=== PATIENT | female | born 1980 | race Caucasian/White ===

== ENCOUNTER 2020-10-02 13:44 | Outpatient (CLI) | payer OTHER, SELFPAY ==
--- NOTE | ~2020-10-02 | XR_ITS ---
EXAMINATION: XR abdomen/kub 1V DATE: 10/02/2020 14:13 INDICATION: Hematuria. TECHNIQUE: A supine view of the abdomen on 2 radiographs was obtained. COMPARISON: None. FINDINGS: There are no dilated loops of bowel. There is a large volume stool in the colon. Right kidn ey is obscured by the colon. There are multiple 1-2 mm densities overlying left kidney that may be st ones. There are multiple calcifications in the pelvis. IMPRESSION: 1. Small left kidney stones. 2. Calcifications in the pelvis, at least most of which are likely phleboliths. Distal ureteral stone cannot be excluded. Reviewed, dictated and finalized at location B.
[2020-10-02 15:07] LABS: Anion Gap 6 mmol/L (8-16); Blood Urea Nitrogen 6 mg/dL (7-17); Calcium 8.6 mg/dL (8.4-10.2); Carbon Dioxide 31 mmol/L (22-30); Chloride 102 mmol/L (98-107); Estimated Glomerular Filt Rate > 60; Glucose 75 mg/dL (65-105); Potassium 3.7 mmol/L (3.4-5.0); Sodium 139 mmol/L (137-145)
[2020-10-02 15:11] LABS: Hematocrit 37.6 % (37.0-47.0); Hemoglobin 12.2 g/dL (12.0-15.0); Mean Corpuscular HGB Conc 32.4 g/dl (32-36); Mean Corpuscular Hemoglobin 29.4 pg (26-34); Mean Corpuscular Volume 90.6 fl (80-100); Mean Platelet Volume 10.6 fl (7.4-10.4); Platelet Count Result 286 k/mm3 (150-375); Red Blood Count 4.15 M/mm3 (4.2-5.4); Red Cell Distribution Width 14.9 % (11.5-14.5); White Blood Count 5.9 K/mm3 (4.5-10.0)
[2020-10-02 15:31] LABS: Free T4 Free Thyroxine 0.93 ng/mL (0.78-2.19); Vitamin D 25 Hydroxy 32.5 ng/mL
== END 2020-10-02 13:45 | disposition home or self-care (01) ==
LOC: ANHIMG 13:49
PROVIDERS: PCP Family Medicine; Referring Provider Nurse Practitioner Family; Visit Provider Nurse Practitioner Family
DX: Z13.1 Encounter for screening for diabetes mellitus (principal); R53.83 Other fatigue; R31.9 Hematuria, unspecified; N20.0 Calculus of kidney
CPT/HCPCS: 36415; 74018; 80048; 82306; 84439; 84443; 85027

== ENCOUNTER 2020-12-17 08:19 | Outpatient (CLI) | payer OTHER, SELFPAY ==
--- NOTE | ~2020-12-17 | XR_ITS ---
EXAMINATION: XR abdomen/kub 1V INDICATION: Hematuria TECHNIQUE: Supine views of the abdomen were obtained on 2 radiographs. COMPARISON: 10/02/2020; CT from today FINDINGS: There are multiple phleboliths of the pelvis. A new 7 mm calcification is seen in the right pelvis at the expected location of the ureterovesicular junction, consistent with the stone identifi ed on CT. There are punctate stones of the kidneys. The bowel gas pattern is normal. IMPRESSION: 1. 7 mm right pelvic calcification in the expected location of the ureterovesicular junction. 2. Bilateral nephrolithiasis. Reviewed, dictated and finalized at location B. IMPRESSION: 1. 7 mm right pelvic calcification in the expected location of the ureterovesic ular junction. 2. Bilateral nephrolithiasis.
--- NOTE | ~2020-12-17 | CT_ITS ---
EXAMINATION: CT abdomen pelvis wo con DATE: 12/17/2020 08:36 INDICATION: Right flank pain and hematuria TECHNIQUE: Computed tomography (CT) of the abdomen and pelvis was performed without intravenous contr ast. The dose-length product (DLP) was 212.51 mGy-cm. Automated exposure control and iterative recons truction technique were employed. COMPARISON: None FINDINGS: The lung bases are clear. The heart size is normal. The liver, pancreas, gallbladder, and a drenal glands are normal. Punctate calcifications in an otherwise normal spleen likely represent heal ed granulomatous disease. There is an 8 mm stone at the right ureterovesicular junction which causes moderate to severe right hydroureteronephrosis. Nonobstructing right kidney stones measure up to 2 mm . There appears to be medullary nephrocalcinosis of the kidneys. Nonobstructing left kidney stones me asure up to 4 mm. No pathologically enlarged abdominal or pelvic lymph nodes are identified. There is no free intraperitoneal gas or evidence of bowel obstruction. IMPRESSION: 1. 8 mm stone of the right ureterovesicular junction causing moderate to severe right hydroureteronep hrosis. 2. 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 Reviewed, dictated and finalized at location B. IMPRESSION: 1. 8 mm stone of the right ureterovesicular junction causing moderate to severe right hydroureteronephrosis. 2. Bilateral nonobstructing nephrolithiasis and likely medullary nephrocalcinos is of the kidneys.
== END 2020-12-17 08:20 | disposition home or self-care (01) ==
PROVIDERS: PCP Family Medicine; Visit Provider Nurse Practitioner Family
DX: M54.9 Dorsalgia, unspecified (principal); R10.9 Unspecified abdominal pain; R31.9 Hematuria, unspecified; N20.0 Calculus of kidney; N13.30 Unspecified hydronephrosis
CPT/HCPCS: 74018; 74176

== ENCOUNTER 2020-12-18 02:56 | Day surgery (SDC) | payer OTHER, SELFPAY ==
[2020-12-17 15:01] VITALS: BMI 22.1
--- NOTE | ~2020-12-18 | XR_ITS ---
EXAMINATION: XR retrograde pyelo w/stent RT DATE: 12/18/2020 13:01 INDICATION: Right ureteral stone. TECHNIQUE: 6 intraoperative fluoroscopic views of the abdomen and pelvis were obtained. I was not pre sent. Fluoroscopy exposure time was 66 seconds. COMPARISON: CT abdomen and pelvis 12/17/2020 FINDINGS: There is a stone at right ureterovesicular junction. The right retrograde pyelogram demonst rates severe hydronephrosis and hydroureter. The final images demonstrate a right internal ureteral s tent in expected position. IMPRESSION: 1. Stone at right ureterovesicular junction. 2. Severe right hydronephrosis and hydroureter. Right internal ureteral stent in expected position. Reviewed, dictated and finalized at location A. IMPRESSION: 1. Stone at right ureterovesicular junction. 2. Severe right hydronephrosis and hydroureter. Right internal ureteral stent i n expected position.
[2020-12-18] MEDS: LACTATED RINGERS 1,000 ML 30 ML IV CONT ×2 (10:50→13:27)
[2020-12-18 11:13] VITALS: BP 124/82; PULSE 95; TEMP 36.5; O2SAT 98
--- NOTE | 2020-12-18 11:29 | P.HP_ITS ---
H&P: HPI History of Present Illness Date/Time: 12/18/20 11:29 Chief Complaint: right ureteral calculus with hydro Narrative: 40 year old with 8mm distal right ureteral calculus. Presents for definitive treatment Review of Systems Review of Systems: All systems reviewed & are unremarkable except as noted in HPI and below [facility] Social History Social History Smoking status: Never smoker Alcohol intake: current Alcohol use details: TWO DRINKS PER MONTH Living arrangements: with family Spiritual care concerns: No Meds Home Medications and Allergies Home Medications Medication Instructions Recorded Confirmed Type meloxicam 15 mg PO PRN PRN 12/17/20 12/17/20 History nitrofurantoin monohyd/m-cryst 100 mg PO Q12H 12/17/20 12/18/20 History [Macrobid] tamsulosin [Flomax] 0.4 mg PO PRN PRN 12/17/20 12/18/20 History tramadol 50 mg tablet 50 mg PO Q6H PRN #30 tablet 12/17/20 12/18/20 Rx tretinoin 1 applic TOPICAL PRN PRN 12/17/20 12/17/20 History Allergies Allergy/AdvReac Type Severity Reaction Status Date / Time Sulfa (Sulfonamide AdvReac Rash Verified 12/18/20 10:22 Antibiotics) Vital Signs Vital Signs - 24 hr 12/18/20 11:13 Temperature 36.5 C Pulse Rate 95 Blood Pressure 124/82 Pulse Oximetry 98 Exam Const: General: cooperative and comfortable Eyes: General: appearance normal, both eyes and all related structures Resp: Effort & Inspection: normal respiratory effort Cardio: Rate: regular rate Rhythm: regular rhythm GI: GI Palp: Yes Soft to palpation Assessment and Plan Assessment and plan (1) Right ureteral calculus: Code(s): N20.1 - Calculus of ureter Status: Acute Assessment and Plan: cystoscopy, right reterograde, right ureteroscopy with stone extraction, laser, stent placment
--- NOTE | 2020-12-18 11:35 | WPDHPUPDATE1 ---
History and Physical Update Update Date/Time: 12/18/20 11:35 History and Physical has been reviewed, including an updated exam of the patient. There are NO changes in the patient's condition. Risks, benefits, and alternatives have been discussed and questions answered. Patient agrees to proceed with procedure.
--- NOTE | 2020-12-18 11:42 | WPDANESEPPF ---
Anes - Initial Pre Proc Eval Procedure: Operation Date: 12/18/20 12:00 Proposed Procedures p Cystoscopy, Right Ureteroscopy, Right Retrograde Pyelogram, Right Stone Extraction, - Frantz Marie MD s Holmium Laser Procedure, Right Stent Placement - Frantz Marie MD Date/Time: 12/18/20 11:42 Surgeon: Frantz Marie MD Pre Op Diagnosis: right ureteral stone Patient Data Age: 40 Gender: F Height: 1.6 m Weight: 57.9 kg Last Vital Signs Temp 36.5 C 12/18/20 11:13 Pulse 95 12/18/20 11:13 BP 124/82 12/18/20 11:13 Pulse Ox 98 12/18/20 11:13 Allergies Allergy/AdvReac Type Severity Reaction Status Date / Time Sulfa (Sulfonamide AdvReac Rash Verified 12/18/20 10:22 Antibiotics) Home Medications Medication Instructions Recorded Confirmed Type meloxicam 15 mg PO PRN PRN 12/17/20 12/17/20 History nitrofurantoin monohyd/m-cryst 100 mg PO Q12H 12/17/20 12/18/20 History [Macrobid] tamsulosin [Flomax] 0.4 mg PO PRN PRN 12/17/20 12/18/20 History tramadol 50 mg tablet 50 mg PO Q6H PRN #30 tablet 12/17/20 12/18/20 Rx tretinoin 1 applic TOPICAL PRN PRN 12/17/20 12/17/20 History Patient hx anesthesia problems: none Family hx anesthesia problems: post op nausea/vomiting PMFSH Social History Social History Smoking status: Never smoker Alcohol intake: current Alcohol use details: TWO DRINKS PER MONTH Living arrangements: with family Spiritual care concerns: No Anes - Eval Final PreProcedure Day of Procedure 12/18/20 11:42 Patient weight: normal Heart: regular rate and rhythm Lungs: clear to auscultation Airway: Mallampati scale class II Neurological: alert and oriented Last oral intake: >/= 8 hours ASA classification: I Emergent: no Anesthetic plan: proceed Anesthesia type and monitoring: general LMA and standard monitoring Informed Consent: The patient's anesthetic plan and its attendant risks and benefits were discussed with the patient/family/POA. Questions were solicited and answers provided to the satisfaction of the patient/family/POA.
[2020-12-18] MEDS: SCOPOLAMINE 1.5 MG PATCH TRANSDERM (11:53)
[2020-12-18] MEDS: ceFAZolin 2 GM/D5W 50 ML 2 GM/50 ML BAG IVPB (12:28)
[2020-12-18] MEDS: LIDOCAINE HCL 2% GEL UROJET 10 ML PKG MUCOUS MEM (12:49)
[2020-12-18] MEDS: KETOROLAC 30 MG/ML VIAL (*BKC) IV PUSH (12:56)
[2020-12-18 13:03] VITALS: BP 102/60; PULSE 72; RESP 16; TEMP 36.1; O2SAT 100
--- NOTE | 2020-12-18 13:03 | P.OP_ITS ---
Procedure Note - Detailed Date of Procedure 12/18/20 Pre-op Diagnosis right ureteral stone Post-op Diagnosis same Procedure Performed Cystoscopy, right retrograde pyelogram, right ureteroscopy with stone extraction, right ureteral stent placement 4.8 [place] contour Surgeon Frantz Marie MD Anesthesia general Description of Procedure patient is taken the operative suite and correctly identified. Once anesthesia was obtained she was placed in dorsal lithotomy position and prepped and draped usual sterile fashion. Twenty-two [place] scope inserted in the bladder. There is no tumors noted. The right ureteral orifice was cannulated with a guidewire. It was then dilated with an 8/10 dilator. Rigid ureteral scope was inserted. The stone was visualized grasped with escape basket and retrieved in its entirety. It sent for analysis. Reinspection revealed no residual stones. Pyelogram was performed. She has a very dilated ureter as well as collecting system. There is some question whether there is a mild UPJ. We were able to manipulate a guidewire up into the renal pelvis and then replaced that with a 4.8 [place] contour stent with the proximal end coiled in the renal pelvis and the distal in the bladder. Bladder was drained. 2% viscous lidocaine was inserted urethra patient is taken recovery room stable condition. She will follow up in a week's time for stent removal. Drains Yes Packing No Pathology yes Complications No immediate complications Condition stable Disposition PACU
[2020-12-18 13:15] VITALS: BP 106/71; PULSE 62; RESP 14; O2SAT 100
[2020-12-18 13:30] VITALS: BP 124/61; PULSE 69; RESP 14; O2SAT 98
[2020-12-18 13:45] VITALS: BP 110/58; PULSE 60; RESP 14; O2SAT 100
[2020-12-18 13:47] VITALS: BP 100/65; PULSE 62; RESP 16
--- NOTE | 2020-12-18 14:20 | SUR.PHASEII ---
PATIENT STATES SHE WAS TOLD SHE HAD A RASH AN WHEN TAKING [facility]. DR. CARVER NOTIFIED AND INSTRUCTED TO DISREGARD BACTRIM PRESCRIPTION. PATIENT HAS MACROBID AT HOME WHICH SHE STARTED YESTERDAY. DR. CARVER INSTRUCTED FOR PATIENT TO TAKE THROUGH TUESDAY. PATIENT UNDERSTANDS.
== END 2020-12-18 14:40 | disposition home or self-care (01) ==
PROVIDERS: PCP Family Medicine; Visit Provider Urology
PROC: (CPT 52352; principal; 2020-12-18 12:00)
DX: N13.2 Hydronephrosis with renal and ureteral calculous obstruction (principal)
CPT/HCPCS: 52332; 52352; 74420; 82365; 88300; A9270; C1758; C1769; C2617; J0690; J1100; J1170; J1885; J2250; J2405; J2704; J3010; J7120; Q9966

== ENCOUNTER → 2020-12-23 08:35 | Outpatient (CLI) | payer OTHER, SELFPAY ==
[2020-12-23 21:09] LABS: SARS-CoV-2 RNA PCR Negative
== END ==
PROVIDERS: PCP Family Medicine; Visit Provider Physician Assistant Medical
DX: R68.89 Other general symptoms and signs (principal); Z20.822 Contact with and (suspected) exposure to COVID-19
CPT/HCPCS: C9803; U0003; U0005

== ENCOUNTER 2021-10-23 12:03 | Outpatient (CLI) | payer OTHER, SELFPAY ==
--- NOTE | ~2021-10-23 | MMUS_ITS ---
EXAMINATION: MM diagnostic chester BI w catarina, US breast BI complete HISTORY: Palpable right breast lump TECHNIQUE: Additional 3-D tomosynthesis images of the breasts were performed and synthetic 2-D images were generated. CAD analysis was submitted and interpreted. High resolution complete bilateral breas t ultrasound was performed. COMPARISON: No prior studies for comparison. BREAST PARENCHYMAL COMPOSITION: The breasts are extremely dense, which lowers the sensitivity of mamm ography FINDINGS: MAMMOGRAPHIC FINDINGS: There are no discrete masses, suspicious clustered calcifications or architectural distortion to sugg est malignancy. ULTRASOUND: Complete bilateral US of all 4 quadrants of the breasts and retroareolar region was reviewed. Right breast ultrasound: There are multiple cysts, largest measuring 11 mm at 12:00 no suspicious mas ses to suggest malignancy. Left breast ultrasound: At 2:00, 4 cm from the nipple, there is a lobulated hypoechoic mass with para llel orientation measuring 1.6 x 1.3 x 1.1 cm. There is posterior acoustic enhancement. No internal v ascularity. There is a cyst at 3:00, 4 cm from the nipple. IMPRESSION: 1. Slightly irregular shaped hypoechoic left breast mass at 2:00, 4 cm from the nipple measuring up t o 1.6 cm. 2. Ultrasound-guided left breast biopsy recommended. BI-RADS category 4, suspicious findings. Reviewed, dictated and finalized at location A. IMPRESSION: 1. Slightly irregular shaped hypoechoic left breast mass at 2:00, 4 cm from the nipple measuring up to 1.6 cm. 2. Ultrasound-guided left breast biopsy recommended. BI-RADS category 4, suspicious findings.
== END 2021-10-23 12:04 | disposition home or self-care (01) ==
LOC: ANHIMG 12:05
PROVIDERS: PCP Family Medicine; Visit Provider Nurse Practitioner Family
DX: N63.0 Unspecified lump in unspecified breast (principal); Z80.41 Family history of malignant neoplasm of ovary; R92.8 Other abnormal and inconclusive findings on diagnostic imaging of breast
CPT/HCPCS: 76641; 77062; 77066; G0279

== ENCOUNTER 2021-10-29 13:19 | Outpatient (CLI) | payer OTHER, SELFPAY ==
--- NOTE | ~2021-10-29 | MMUS_ITS ---
EXAMINATION: US GUIDED NEEDLE BIOPSY DATE: 10/29/2021 14:16 CDT INDICATION: 2:00 left breast mass TECHNIQUE AND FINDINGS: The risks and potential benefits of the procedure were discussed with the patient, and written inform ed consent was obtained. Timeout procedure was performed. After sterile preparation of the left breas t, 1% lidocaine was utilized for local anesthesia. A 14G spring-loaded biopsy gun needle was advanced to the edge of the region of interest from a super olateral approach utilizing sonographic guidance. A total of 4 tissue core samples were obtained thr ough the lesion. An Inrad tissue marker clip was then placed at the biopsy site. Hemostasis was achi eved. A sterile bandage was applied. The patient tolerated procedure well and there was no evidence of immediate complication. The patien t was given verbal instructions prior to departing from the department. A two view mammogram was perf ormed to document tissue marker clip placement. The tissue samples were submitted to surgical patholo gy for histologic analysis. IMPRESSION: 1. Successful ultrasound guided biopsy of 2:00 left breast mass with biopsy marker placement. Please refer to pathology report for histologic analysis. Reviewed, dictated and finalized at Location A. Reviewed, dictated and finalized at location A. IMPRESSION: 1. Successful ultrasound guided biopsy of 2:00 left breast mass with biopsy ma rker placement. Please refer to pathology report for histologic analysis.
== END 2021-10-29 13:20 | disposition home or self-care (01) ==
PROVIDERS: PCP Family Medicine; Visit Provider Nurse Practitioner Family
DX: N60.12 Diffuse cystic mastopathy of left breast (principal)
CPT/HCPCS: 19083; 88305; 88342; A4648

== ENCOUNTER 2022-10-22 12:38 | Outpatient (CLI) | payer OTHER, SELFPAY ==
--- NOTE | ~2022-10-22 | MM_ITS ---
EXAMINATION: MM diagnostic chester BI w catarina HISTORY: 10/29/2021 left breast biopsy (fibroadenomatoid change). No new complaints. TECHNIQUE: ML, MLO, CC 3-D tomosynthesis images of both breasts were performed and synthetic 2-D imag es were generated. Bilateral rotated lateral CC views. CAD analysis was submitted and interpreted. COMPARISON: 10/23/2021ilateral diagnostic mammography and bilateral complete breast ultrasound examin ation BREAST PARENCHYMAL COMPOSITION: The breasts are extremely dense, which lowers the sensitivity of mamm ography. FINDINGS: Biopsy marker on the left; history of prior benign left breast biopsy. No suspicious mass o r architectural distortion, malignant calcification, skin thickening or retraction or significant new or developing density is detected. IMPRESSION: 1. No mammographic evidence of malignancy or significant change since 10/23/2021 2. Routine annual mammographic screening is recommended BI-RADS Category 1: Negative Reviewed, dictated and finalized at location A.
== END 2022-10-22 12:39 | disposition home or self-care (01) ==
PROVIDERS: PCP Family Medicine; Visit Provider Nurse Practitioner Family
DX: Z12.39 Encounter for other screening for malignant neoplasm of breast (principal); Z87.898 Personal history of other specified conditions
CPT/HCPCS: 77062; 77066; G0279